=== PATIENT | female | born 1985 | race Caucasian/White ===

== ENCOUNTER 2019-04-20 15:49 | Emergency (ER) | payer OTHER ==
[2019-04-20] MEDS ORDERED: Tetan/Diph/Pertus SYR(Tdap)* 0.5 ML SYR(BOOSTRIX) use SYR contains LATEX IM ONE (16:01)
--- NOTE | 2019-04-20 16:01 | UC ---
Hand/Wrist HPI - HPI Summary HPI Summary: 33-year-old female who slammed her left ring finger in a car door 2 days ago. She's had some bruising with minimal swelling. She states today when she went out into the cold it was more painful. Last tetanus is unknown. She has 2 superficial abrasions present as well - History Of Current Complaint Stated Complaint: LT RING FINGER INJURY Time Seen by Provider: 04/20/19 15:58 Hx Obtained From: Patient ?: No Onset/Duration: Sudden Onset Severity Initially: Mild Severity Currently: Moderate Character Of Pain: Dull, Aching Aggravating Factor(s): Movement, Flexion, Extension Alleviating Factor(s): Nothing Associated Signs And Symptoms: Positive: Bruising, Numbness/Tingling - Mild tingling to the finger over the past couple of days since the injury. - Allergies/Home Medications Allergies/Adverse Reactions: Allergies Allergy/AdvReac Type Severity Reaction Status Date / Time cephalexin [From Keflex] Allergy Rash Verified 04/20/19 16:04 clarithromycin [From Biaxin] Allergy Rash Verified 04/20/19 16:04 nitrofurantoin Allergy Rash Verified 04/20/19 16:04 [From Macrodantin] Penicillins Allergy Rash Verified 04/20/19 16:04 tramadol Allergy Vomiting Verified 04/20/19 16:04 Home Medications: Home Medications ALPRAZolam TAB* [Xanax TAB*] 0.25 mg PO TID PRN 04/20/19 [History Confirmed ] Albuterol HFA INHALER* [Ventolin HFA Inhaler*] 1 puff TID PRN 04/20/19 [History Confirmed 04/20/19] Cyclobenzaprine TAB* [Flexeril 10 MG TAB*] 10 mg PO TID PRN 04/20/19 [History Confirmed 04/20/19] Levothyroxine TAB* [Synthroid TAB*] 175 mcg PO DAILY 04/20/19 [History Confirmed 04/20/19] Topiramate TAB(*) [Topamax 100 mg tab] 1 tab QPM 04/20/19 [History Confirmed ] oxyCODONE SR TAB(*) [Oxycontin(*)] 15 mg PO BID 04/20/19 [History Confirmed ] PMH/Surg Hx/FS Hx/Imm Hx Previously Healthy: Yes - Family History Known Family History: Positive: Non-Contributory - Social History Lives: With Family Review of Systems All Other Systems Reviewed And Are Negative: Yes Skin: Positive: Bruising - Oozing to the midportion of the left ring finger. Musculoskeletal: Positive: Other: - Pain to the midportion of the left ring finger where the bruising is located. Is Patient Immunocompromised?: No Physical Exam Triage Information Reviewed: Yes Appearance: Well-Appearing, No Pain Distress, Well-Nourished Vital Signs Reviewed: Yes Musculoskeletal: Positive: Strength Intact, ROM Intact, Other: - Good peripheral pulses, neuro sensation and capillary refill. Bruising to the midportion of the left ring finger, no deformity, swelling or erythema is noted. Good finger strength with flexion extension against resistance. Hand and wrist is nontender. Neurological Exam: Normal Psychological Exam: Normal Skin: Positive: Other - See above notes. Hand/Wrist Course/Dx - Course Course Of Treatment: Left ring finger x-ray:Indication: Left fourth finger injury. 3 views of left fourth finger demonstrates no fracture or dislocation. No other bone or joint abnormality is identified. Special attention was paid to the distal interphalangeal joint. IMPRESSION: No fracture of the left fourth finger is noted. The patient can continue to elevate as much as possible, take Tylenol or Motrin for pain. Follow-up with the orthopedist as needed if continued pain over the next 4-5 days. - Differential Dx/Diagnosis Provider Diagnosis: Contusion, finger Discharge ED - Sign-Out/Discharge Documenting (check all that apply): Patient Departure All imaging exams completed and their final reports reviewed: Yes - Discharge Plan Condition: Good Disposition: HOME Patient Education Materials: Contusion in Adults (ED) Referrals: William Jonas MD [Medical Doctor] - Maria Victoria ZELAYA,Suap [Primary Care Provider] - Additional Instructions: Elevate as much as possible, Tylenol every 4 hours and Motrin every 8 hours for pain. You can keep the sabrina tape on for comfort and remove as desired. Follow -up with the orthopedist if no improvement in 4 or 5 days. - Billing Disposition and Condition Condition: GOOD Disposition: Home - Attestation Statements Provider Attestation: This patient was not seen by me I was available for consult Chart reviewed [email or web address]
[2019-04-20 16:13] VITALS: BP 117/69
== END 2019-04-20 16:41 | disposition home or self-care (01) ==
LOC: UCCORT 15:49
DX: S60.042A Contusion of left ring finger without damage to nail, initial encounter (principal); W23.0XXA Caught, crushed, jammed, or pinched between moving objects, initial encounter; Y92.9 Unspecified place or not applicable; Z88.1 Allergy status to other antibiotic agents; Z88.5 Allergy status to narcotic agent; Z88.0 Allergy status to penicillin
CPT/HCPCS: 73140; 90471; 90715; 99201; G0463